=== PATIENT | female | born 1940 | race Caucasian/White ===

== ENCOUNTER → 2016-08-25 | Outpatient (CLI) | payer MEDICARE, OTHER ==
[~2016-08-25] MED LIST: ACTOS15 MG PO; ASPIRIN81 M1 PO; GLUCOPHAGE500 MG PO; TENORMIN25 MG PO; TRIAMTERENE-HCT1 TA8 PO; ZOCOR PO
== END | disposition home or self-care (01) ==
LOC: CLAB 13:23
DX: M10.9 Gout, unspecified (principal)
CPT/HCPCS: 36415; 84550

== ENCOUNTER → 2017-02-18 | Outpatient (CLI) | payer MEDICARE, OTHER ==
--- NOTE | ~2017-02-18 | MY29 ---
[facility] A Service of [facility] RADIOLOGY TEXT RESULTS PATIENT: MIRTHA LEARY LOCATION: [facility] : 38 UNIT #: [id number] AGE: [address]: Diana Sanchez MD SEX: F ORDER DR: [id number] [facility] [address] [place], [place] [address] [id number] O MR#: [id number] Acc #: [id number] NAME: MIRTHA LEARY : 1940 SEX: F STUDY DATE/TIME: 02/18/2017 9:40 UNIT: [facility] ROOM: STUDY DESCRIPTION: [facility] SCREENING W/ CAD BILAT Attending Physician: Diana Sanchez M.D. Ordering Physician: Diana Sanchez M.D. Primary Care Physician: Diana Sanchez M.D. MEDICAL IMAGING REPORT This report is preliminary unless electronic signature is present EXAM Bilateral digital screening mammogram with CAD 02/18/2017 INDICATIONS 76-year-old female for routine screening. No reported problems and no personal or family history of breast cancer. No prior surgeries. TECHNIQUE CC and MLO views of the breasts were obtained and reviewed with an FDA-approved CAD device COMPARISON 02/08/2015, 02/06/2014, 02/04/2013. FINDINGS The breast parenchyma is composed of scattered fibroglandular densities, and the pattern is unchanged. There is no new dominant nodule, mass, or suspicious cluster of microcalcifications. Benign nodularity and intramammary nodes are stable. Benign calcifications. IMPRESSION Benign screening mammogram. 1-year followup recommended. Patients over the age of 40 are entered into a reminder system with target due date for the next mammogram. A result letter will also be sent to the patient. BIRADS: 2 Benign finding. Dictated by... Gino Clark M.D. [facility] A Service [facility] RADIOLOGY TEXT RESULTS PATIENT: MIRTHA LEARY LOCATION: [facility] : 39 UNIT #: [id number] AGE: [address]: Diana Sanchez MD SEX: F ORDER DR: THIS IS AN ELECTRONICALLY VERIFIED REPORT Gino Clark M.D. at 02/18/2017 4:24 PM Gauri TD: 02/18/2017 13:18 JOB #: [id number] MEDICAL IMAGING REPORT Page 1 of 1 COPY
--- NOTE | ~2017-02-18 | BD1 ---
[facility] A Service of [facility] RADIOLOGY TEXT RESULTS PATIENT: MIRTHA LEARY LOCATION: [facility] : 39 UNIT #: [id number] AGE: [address]: Diana Sanchez MD SEX: F ORDER DR: [id number] [place] [id number] [facility] [address]. [place], [place] [address] [id number] O MR#: [id number] Acc #: [id number] NAME: MIRTHA LEARY : 1940 SEX: F STUDY DATE/TIME: 02/18/2017 9:23 UNIT: [facility] ROOM: STUDY DESCRIPTION: BD Dexa Bone Dens 1+ Site Attending Physician: Diana Sanchez M.D. Ordering Physician: Diana Sanchez M.D. Primary Care Physician: Diana Sanchez M.D. MEDICAL IMAGING REPORT This report is preliminary unless electronic signature is present EXAM DXA scan. DATE 02/18/2017 HISTORY 76-year-old postmenopausal female for osteoporosis screening. Multivitamin with vitamin D supplementation. COMPARISON DXA scan, 02/08/2015 FINDINGS L1 through L4 total bone mineral density is 0.801 g.cm2 with T-score -2.2 and Z-score 0.3, corresponding to the range of osteopenia. This represents a 1.6% increase in bone mineral density since 02/08/2015 which is not statistically significant. The left femoral neck bone mineral density is 0.582 g/cm2 with T-score -2.4 and Z-score -0.2, corresponding to the range of osteopenia. This represents a 7.6% increase in bone mineral density since 02/08/2015, which is statistically significant. IMPRESSION 1. Osteopenia within the lumbar spine and within the left femoral neck. 2. There has been a statistically significant increase in bone mineral density within the left femoral neck since 02/08/2015. Dictated by... Elda Albright M.D. THIS IS AN ELECTRONICALLY VERIFIED REPORT [facility] A Service of [facility] RADIOLOGY TEXT RESULTS PATIENT: MIRTHA LEARY LOCATION: [facility] #: [id number] : 38 UNIT #: [id number] AGE: [address]: Diana Sanchez MD SEX: F ORDER DR: Elda Albright M.D. at 02/19/2017 8:49 AM FARHAD/terry TD: 02/18/2017 12:40 JOB #: [id number] MEDICAL IMAGING REPORT Page 1 of 1 COPY
== END | disposition home or self-care (01) ==
LOC: CWCC 09:00
DX: Z12.31 Encounter for screening mammogram for malignant neoplasm of breast (principal); M81.0 Age-related osteoporosis without current pathological fracture; M85.852 Other specified disorders of bone density and structure, left thigh; M85.88 Other specified disorders of bone density and structure, other site
CPT/HCPCS: 77080; G0202